=== PATIENT | male | born 1945 | race African-American/Black ===

== ENCOUNTER 2022-06-17 14:55 | Observation (INO) | payer OTHER ==
[2022-06-17 15:29] VITALS: BMI 23.6
[2022-06-17 17:32] LABS: BASO % 0.5 % (0-2.0); EOS % 0.9 % (0-4.5); HEMATOCRIT 30.9 % (35.4-49); HEMOGLOBIN 10.6 GM/dL (11.7-16.9); MCH 31.4 pg (25.7-33.7); MCHC 34.5 g/dl (32.0-35.9); MEAN CELL VOLUME 91.1 fl (80-96); MEAN PLT VOLUME 7.7 fl (7.5-11.1); MONO % 13.5 % (3.8-10.2); NEUT % 47.1 % (42.8-82.8); PLATELET COUNT 235 10^3/uL (134-434); RBC 3.39 M/mm3 (4.00-5.60); RDW 14.7 % (11.9-15.9); WHITE BLOOD COUNT 4.7 K/mm3 (4.0-10.0)
[2022-06-17 17:52] LABS: CALCIUM 9.3 mg/dL (8.5-10.1)
[2022-06-17 17:53] LABS: ALBUMIN 3.2 g/dl (3.4-5.0); BLOOD UREA NITROGEN 14.1 mg/dL (7-18)
[2022-06-17 17:55] LABS: CREATININE 0.8 mg/dL (0.55-1.3)
[2022-06-17 17:58] LABS: BILIRUBIN,TOTAL 0.5 mg/dL (0.2-1); TOT PROT 7.1 g/dl (6.4-8.2)
[2022-06-17 18:02] LABS: INR 1.11 (0.83-1.09); PROTHROMBIN TIME (PATIENT) 12.9 SEC (9.7-13.0)
[2022-06-17 18:03] LABS: ACTIVATED PTT 32.3 SECONDS (25.2-36.5)
[2022-06-17] MEDS ORDERED: ATORVASTATIN CA 80 MG TABLET (FP) PO ONE (19:00)
[2022-06-17] MEDS ORDERED: ASPIRIN 81 MG CHEWABLE TABLETS PO ONE (19:00)
[2022-06-17] MEDS ORDERED: ASPIRIN 81 MG CHEWABLE TABLETS ONE (19:47)
[2022-06-17] MEDS ORDERED: ATORVASTATIN CA 80 MG TABLET (FP) ONE (19:47)
[2022-06-18] MEDS: BRIMONIDINE TARTRATE 0.2% OPHTHALMIC 5 ML BOTTLE OU SCH ×3 (06:04→21:59)
[2022-06-18] MEDS: TIMOLOL 0.5% OPHTHALMIC SOL 5 ML BOTTLE OU SCH ×3 (06:04→21:59)
[2022-06-18] MEDS: LATANOPROST 0.005% OPHTH SOLN 2.5ML BOTTLE OU SCH ×2 (06:05→21:59)
[2022-06-18] MEDS: DEXTROSE 5%-0.45% SALINE 1,000 ML IV SCH ×2 (07:46→20:58)
[2022-06-18 09:09] LABS: EOS % 1.4 % (0-4.5); HEMATOCRIT 30.5 % (35.4-49); HEMOGLOBIN 10.4 GM/dL (11.7-16.9); LYMPH % 41.4 % (8-40); MCH 31.2 pg (25.7-33.7); MEAN CELL VOLUME 91.7 fl (80-96); MEAN PLT VOLUME 7.6 fl (7.5-11.1); MONO % 13.1 % (3.8-10.2); NEUT % 43.1 % (42.8-82.8); PLATELET COUNT 248 10^3/uL (134-434); RBC 3.32 M/mm3 (4.00-5.60); RDW 14.4 % (11.9-15.9); WHITE BLOOD COUNT 4.1 K/mm3 (4.0-10.0)
[2022-06-18 09:16] VITALS: RESP 18
[2022-06-18 09:53] LABS: CALCIUM 8.7 mg/dL (8.5-10.1)
[2022-06-18 09:55] LABS: BLOOD UREA NITROGEN 11.4 mg/dL (7-18)
[2022-06-18 09:58] LABS: CREATININE 0.7 mg/dL (0.55-1.3)
[2022-06-18 09:59] LABS: TOT PROT 6.5 g/dl (6.4-8.2)
[2022-06-18 10:00] LABS: BILIRUBIN,TOTAL 0.4 mg/dL (0.2-1)
[2022-06-18] MEDS ORDERED: LORazepam 2 MG/ML SDV VIAL IVPUSH PRN (10:16)
[2022-06-18 10:35] LABS: CHOLESTEROL 109 mg/dL (50-200); LDL CHOLESTEROL (ONLY SJRH) 57 mg/dL (5-100); TRIGLYCERIDES 104 mg/dL (0-150)
[2022-06-18 10:37] LABS: HDL CHOLESTEROL 37 mg/dL (40-60)
[2022-06-18] MEDS: ASPIRIN COATED 81 MG TABLET.EC PO SCH ×2 (11:31→11:37)
[2022-06-18] MEDS: amLODIPine BESYLATE 10 MG TABLET (FP) PO SCH ×2 (11:31→11:37)
[2022-06-18] MEDS ORDERED: HALOPERIDOL LACTATE 5 MG/ML IM ONE (16:01)
[2022-06-18] MEDS ORDERED: ATORVASTATIN CA 40 MG TABLET (FP) PO SCH (22:00)
[2022-06-19] MEDS: TIMOLOL 0.5% OPHTHALMIC SOL 5 ML BOTTLE OU SCH (09:20)
[2022-06-19] MEDS: BRIMONIDINE TARTRATE 0.2% OPHTHALMIC 5 ML BOTTLE OU SCH (09:37)
[2022-06-19] MEDS: amLODIPine BESYLATE 10 MG TABLET (FP) PO SCH (09:38)
[2022-06-19] MEDS: ASPIRIN COATED 81 MG TABLET.EC PO SCH (09:38)
[2022-06-19 18:27] VITALS: PULSE 74
[2022-06-19 20:29] VITALS: BP 140/68; TEMP 97.8
== END 2022-06-19 20:00 ==
LOC: JER 14:55 → JERBED 19:22 → J4W 23:12
PROVIDERS: ADMIT Internal Medicine; ATTEND Internal Medicine
PROC: 3E023GC Introduction of Other Therapeutic Substance into Muscle, Percutaneous Approach (ICD-10-PCS; principal; 2022-06-17)
PROC: 3E033NZ Introduction of Analgesics, Hypnotics, Sedatives into Peripheral Vein, Percutaneous Approach (ICD-10-PCS; 2022-06-17)
DX: G81.91 Hemiplegia, unspecified affecting right dominant side (principal); H54.8 Legal blindness, as defined in USA; I67.9 Cerebrovascular disease, unspecified; F03.90 Unspecified dementia, unspecified severity, without behavioral disturbance, psychotic disturbance, mood disturbance, and anxiety; I10 Essential (primary) hypertension; H40.9 Unspecified glaucoma
CPT/HCPCS: 0241U-QW; 36415; 70450-TC; 71045-TC-FY; 72125-TC; 80053; 80061; 84484; 85025; 85610; 85730; 86850; 86900; 86901; 93005; 93010; 93880-TC; 96372; 96374; 99285-25; G0378

== ENCOUNTER 2023-01-13 16:52 | Emergency (ER) | payer OTHER ==
[2023-01-13 17:59] VITALS: BP 124/57; PULSE 62; RESP 18; TEMP 97.7; BMI 18.1
[2023-01-13 18:50] LABS: BASO % 0.7 % (0-2.0); EOS % 1.1 % (0-4.5); HEMATOCRIT 28.7 % (35.4-49); HEMOGLOBIN 9.9 GM/dL (11.7-16.9); LYMPH % 36.1 % (8-40); MCH 32.1 pg (25.7-33.7); MCHC 34.5 g/dl (32.0-35.9); MEAN PLT VOLUME 8.5 fl (7.5-11.1); MONO % 14.1 % (3.8-10.2); PLATELET COUNT 202 10^3/uL (134-434); RBC 3.08 M/mm3 (4.00-5.60); RDW 14.9 % (11.9-15.9)
[2023-01-13 18:59] LABS: INR 1.17 (0.83-1.09); PROTHROMBIN TIME (PATIENT) 13.6 SEC (9.7-13.0)
[2023-01-13 19:00] LABS: ACTIVATED PTT 29.2 SECONDS (25.2-36.5)
[2023-01-13 19:15] LABS: POTASSIUM 4.2 mmol/L (3.5-5.1)
[2023-01-13 19:17] LABS: ALBUMIN 3.4 g/dl (3.4-5.0); BLOOD UREA NITROGEN 23.5 mg/dL (7-18); CALCIUM 9.1 mg/dL (8.5-10.1)
[2023-01-13 19:20] LABS: CREATININE 1.1 mg/dL (0.55-1.3)
[2023-01-13 19:22] LABS: BILIRUBIN,TOTAL 0.2 mg/dL (0.2-1); TOT PROT 6.8 g/dl (6.4-8.2)
== END 2023-01-14 05:30 ==
LOC: JER 16:52
DX: S40.911A Unspecified superficial injury of right shoulder, initial encounter (principal); M25.511 Pain in right shoulder; W19.XXXA Unspecified fall, initial encounter; Z20.822 Contact with and (suspected) exposure to COVID-19
CPT/HCPCS: 0241U-QW; 36415; 70450-TC; 71045-TC-FY; 72125-TC; 73030-TC-RT-FY; 73060-TC-RT-FY; 73070-TC-RT-FY; 73200-TC-RT; 80053; 82550; 82553; 83735; 84484; 85025; 85610; 85730; 86850; 86900; 86901; 93005; 93010; 99285-25

== ENCOUNTER 2023-04-01 09:04 | Emergency (ER) | payer OTHER ==
[2023-04-01 09:37] VITALS: RESP 18; TEMP 98; BMI 14.8
[2023-04-01 10:31] LABS: BASO % 0.9 % (0-2.0); EOS % 1.5 % (0-4.5); HEMATOCRIT 30.3 % (35.4-49); LYMPH % 26.3 % (8-40); MCH 30.9 pg (25.7-33.7); MCHC 32.9 g/dl (32.0-35.9); MEAN PLT VOLUME 7.8 fl (7.5-11.1); MONO % 9.7 % (3.8-10.2); NEUT % 61.6 % (42.8-82.8); PLATELET COUNT 180 10^3/uL (134-434); RBC 3.23 M/mm3 (4.00-5.60); RDW 14.4 % (11.9-15.9); WHITE BLOOD COUNT 3.6 K/mm3 (4.0-10.0)
[2023-04-01 10:43] LABS: INR 1.14 (0.83-1.09); PROTHROMBIN TIME (PATIENT) 13.2 SEC (9.7-13.0)
[2023-04-01 10:45] LABS: ACTIVATED PTT 29.5 SECONDS (25.2-36.5)
[2023-04-01 10:50] LABS: ALBUMIN 3.3 g/dl (3.4-5.0); CALCIUM 8.6 mg/dL (8.5-10.1)
[2023-04-01 10:55] LABS: BILIRUBIN,TOTAL 0.4 mg/dL (0.2-1)
[2023-04-01] MEDS ORDERED: HALOPERIDOL LACTATE 5 MG/ML IVPUSH ONE (13:40)
[2023-04-01] MEDS ORDERED: HALOPERIDOL LACTATE 5 MG/ML ONE ×2 (13:41→13:46)
[2023-04-01] MEDS ORDERED: MIDAZOLAM HCL 10 MG/10 ML VIAL IVPUSH ONE (14:45)
[2023-04-01] MEDS ORDERED: MIDAZOLAM HCL 2 MG/2 ML SINGLE DOSE VIAL ONE (15:02)
[2023-04-01 18:46] VITALS: BP 142/75; PULSE 85
== END 2023-04-02 00:30 ==
LOC: JER 09:04
PROC: 3E023GC Introduction of Other Therapeutic Substance into Muscle, Percutaneous Approach (ICD-10-PCS; principal; 2023-04-01)
PROC: 3E023GC Introduction of Other Therapeutic Substance into Muscle, Percutaneous Approach (ICD-10-PCS; 2023-04-01)
DX: R45.1 Restlessness and agitation (principal); R44.3 Hallucinations, unspecified; F22 Delusional disorders; W06.XXXA Fall from bed, initial encounter; Y93.89 Activity, other specified; Z20.822 Contact with and (suspected) exposure to COVID-19
CPT/HCPCS: 0241U-QW; 36415; 70450-TC; 71045-TC-FY; 72125-TC; 72170-TC-FY; 80053; 84484; 85025; 85610; 85730; 93005; 93010; 99285-25

== ENCOUNTER 2023-10-20 13:58 | Emergency (ER) | payer OTHER ==
[2023-10-20 14:32] VITALS: RESP 19; TEMP 97.9
[2023-10-20 14:35] VITALS: BMI 22.1
[2023-10-20 18:06] VITALS: BP 129/64; PULSE 69
== END 2023-10-20 18:51 ==
LOC: JER 13:58
DX: Z04.3 Encounter for examination and observation following other accident (principal); W05.0XXA Fall from non-moving wheelchair, initial encounter
CPT/HCPCS: 70450-TC; 72125-TC; 99284-25

== ENCOUNTER 2024-04-04 18:52 | Inpatient (IN) | payer OTHER ==
[2024-04-04 19:43] VITALS: BMI 20.7
[2024-04-04 20:21] LABS: VENOUS BASE EXCESS 0.7 mmol/L (-2-2); VENOUS O2 SATURATION 71.5 % (70-80); VENOUS PCO2 42.4 mmHg (38-52); VENOUS PH 7.399 (7.310-7.410)
[2024-04-04 20:24] LABS: HEMOGLOBIN 10.8 GM/dL (11.7-16.9); MCH 31.1 pg (25.7-33.7); MCHC 32.7 g/dl (32.0-35.9); MEAN CELL VOLUME 95.1 fl (80-96); MEAN PLT VOLUME 8.7 fl (7.5-11.1); PLATELET COUNT 166 10^3/uL (134-434); RBC 3.47 M/mm3 (4.00-5.60); RDW 15.7 % (11.9-15.9)
[2024-04-04 20:28] LABS: INR 1.17 (0.83-1.09); PROTHROMBIN TIME (PATIENT) 13.4 SEC (9.7-13.0)
[2024-04-04 20:31] LABS: ACTIVATED PTT 29.6 SECONDS (25.2-36.5)
[2024-04-04 20:33] LABS: MAGNESIUM 2.5 mg/dL (1.8-2.4); POTASSIUM 4.7 mmol/L (3.5-5.1)
[2024-04-04 20:35] LABS: CALCIUM 9.3 mg/dL (8.5-10.1)
[2024-04-04 20:36] LABS: ALBUMIN 3.7 g/dl (3.4-5.0); BLOOD UREA NITROGEN 25.5 mg/dL (7-18)
[2024-04-04 20:39] LABS: CREATININE 1.6 mg/dL (0.55-1.3)
[2024-04-04 20:41] LABS: BILIRUBIN,TOTAL 0.5 mg/dL (0.2-1); N-TERMINAL BNP 2748.4 pg/ml (5-450); TOT PROT 7.9 g/dl (6.4-8.2)
[2024-04-04] MEDS: KETOROLAC TROMETHAMINE 15 MG/ML VIAL IVPUSH ONE (20:48)
[2024-04-04] MEDS: SODIUM CHLORIDE 0.9% 1000 ML INFUS.BAG IV ONE (20:48)
[2024-04-04] MEDS ORDERED: KETOROLAC TROMETHAMINE 15 MG/ML VIAL ONE (20:49)
[2024-04-04 21:04] LABS: LACTIC ACID 2.3 mmol/L (0.4-2.0)
[2024-04-04 21:18] LABS: ANISOCYTOSIS 1+; MACROCYTOSIS 0
[2024-04-05] MEDS: SODIUM CHLORIDE 1,000 ML IV SCH (01:03)
[2024-04-05] MEDS: OSELTAMIVIR PHOSPHATE 30 MG CAPSULE PO ONE (01:04)
[2024-04-05] MEDS: ASPIRIN 81 MG CHEWABLE TABLETS PO ONE (01:04)
[2024-04-05] MEDS ORDERED: ASPIRIN 81 MG CHEWABLE TABLETS ONE ×2 (01:08→10:31)
[2024-04-05] MEDS ORDERED: OSELTAMIVIR PHOSPHATE 30 MG CAPSULE ONE (01:08)
[2024-04-05] MEDS ORDERED: ACETAMINOPHEN 325 MG TABLET (FP) PO PRN (04:40)
[2024-04-05] MEDS: INSULIN ASPART SLIDING SCALE (NOVOLOG) 1 VIAL SQ SCH (08:19)
[2024-04-05 08:26] LABS: HEMATOCRIT 32.4 % (35.4-49); HEMOGLOBIN 10.8 GM/dL (11.7-16.9); MCH 31.4 pg (25.7-33.7); MCHC 33.2 g/dl (32.0-35.9); MEAN CELL VOLUME 94.6 fl (80-96); MEAN PLT VOLUME 8.6 fl (7.5-11.1); PLATELET COUNT 148 10^3/uL (134-434); RBC 3.43 M/mm3 (4.00-5.60); RDW 15.8 % (11.9-15.9); WHITE BLOOD COUNT 6.6 K/mm3 (4.0-10.0)
[2024-04-05 08:39] LABS: POTASSIUM 4.2 mmol/L (3.5-5.1)
[2024-04-05 08:42] LABS: ALBUMIN 3.6 g/dl (3.4-5.0); BLOOD UREA NITROGEN 24.9 mg/dL (7-18); CALCIUM 9.1 mg/dL (8.5-10.1); MAGNESIUM 2.5 mg/dL (1.8-2.4)
[2024-04-05 08:45] LABS: CREATININE 1.3 mg/dL (0.55-1.3)
[2024-04-05 08:46] LABS: PHOSPHOROUS 3.6 mg/dL (2.5-4.9)
[2024-04-05 08:47] LABS: BILIRUBIN,TOTAL 0.4 mg/dL (0.2-1); TOT PROT 7.7 g/dl (6.4-8.2)
[2024-04-05 09:04] LABS: ANISOCYTOSIS 0; MACROCYTOSIS 0
[2024-04-05] MEDS ORDERED: LOSARTAN POTASSIUM 50 MG TABLET PO SCH (10:00)
[2024-04-05] MEDS ORDERED: traZODone HCL 50 MG TABLET (FP) ONE (10:31)
[2024-04-05] MEDS: traZODone HCL 50 MG TABLET (FP) PO SCH (10:35)
[2024-04-05] MEDS: ASPIRIN 81 MG CHEWABLE TABLETS PO SCH (10:35)
[2024-04-05] MEDS: OSELTAMIVIR PHOSPHATE 30 MG CAPSULE PO SCH (10:36)
[2024-04-05] MEDS: MAGNESIUM HYDROX 2400MG/30ML ORAL SUSPENSION 30 ML CUP PO SCH (10:36)
[2024-04-05] MEDS: amLODIPine BESYLATE 10 MG TABLET (FP) PO SCH (10:36)
[2024-04-05] MEDS: QUEtiapine FUMARATE 25 MG TABLET PO SCH (10:36)
[2024-04-05] MEDS: HEPARIN NA (PORCINE) 5,000 UNITS/ML 1ML VIAL SQ SCH (10:36)
[2024-04-05] MEDS: CHOLECALCIFEROL (VIT D3) 1,000 UNIT (25 MCG) TABLET PO SCH (10:36)
[2024-04-05] MEDS: FERROUS SO4 325 MG TABLET (FP) PO SCH (10:36)
[2024-04-05] MEDS: PANTOPRAZOLE 20 MG TABLET PO SCH (10:36)
[2024-04-05] MEDS: BRIMONIDINE TARTRATE 0.2% OPHTHALMIC 5 ML BOTTLE OU SCH (13:20)
[2024-04-05] MEDS ORDERED: CEFTRIAXONE 1 G/50 ML PREMIX 50 ML IVPB ONE (15:45)
[2024-04-05] MEDS: CEFTRIAXONE 1 GM in DEXTROSE 5%-WATER - 50 ML IVPB SCH (16:55)
[2024-04-05] MEDS: PATIENT'S OWN MEDICATION (NON-FORMULARY) (Timolol Maleate/Pf [Timolol Maleate 0.5% Eye Dro OU SCH (17:52)
[2024-04-05] MEDS: ACETAMINOPHEN 325 MG TABLET (FP) PO PRN (19:24)
[2024-04-05] MEDS: DOCUSATE SODIUM 100 MG CAPSULE (FP) PO SCH (21:04)
[2024-04-05] MEDS: MELATONIN 1 MG TABLET PO SCH (21:04)
[2024-04-05] MEDS: ATORVASTATIN CA 20 MG TABLET (FP) PO SCH (21:04)
[2024-04-05] MEDS: LATANOPROST 0.005% OPHTH SOLN 2.5ML BOTTLE OU SCH (22:21)
[2024-04-05] MEDS: MIRTAZAPINE 15 MG TABLET (FP) PO SCH (22:21)
[2024-04-06] MEDS: CEFTRIAXONE 1 G/50 ML PREMIX 50 ML IVPB SCH (10:31)
[2024-04-06] MEDS: ACETAMINOPHEN 1000 MG/100 ML BAG IVPB ONE (10:44)
[2024-04-06] MEDS: FUROSEMIDE 40 MG/4 ML INJECTABLE VIAL IVPUSH ONE (10:44)
[2024-04-06 14:26] LABS: HEMATOCRIT 30.9 % (35.4-49); HEMOGLOBIN 10.4 GM/dL (11.7-16.9); MCH 31.2 pg (25.7-33.7); MCHC 33.4 g/dl (32.0-35.9); MEAN CELL VOLUME 93.2 fl (80-96); MEAN PLT VOLUME 9.1 fl (7.5-11.1); PLATELET COUNT 158 10^3/uL (134-434); RBC 3.32 M/mm3 (4.00-5.60); RDW 15.6 % (11.9-15.9); WHITE BLOOD COUNT 7.5 K/mm3 (4.0-10.0)
[2024-04-06 14:41] LABS: POTASSIUM 3.2 mmol/L (3.5-5.1)
[2024-04-06 14:43] LABS: BLOOD UREA NITROGEN 25.2 mg/dL (7-18); CALCIUM 8.8 mg/dL (8.5-10.1)
[2024-04-06 14:44] LABS: ALBUMIN 3.3 g/dl (3.4-5.0)
[2024-04-06 14:46] LABS: CREATININE 1.1 mg/dL (0.55-1.3)
[2024-04-06 14:47] LABS: BILIRUBIN,TOTAL 0.4 mg/dL (0.2-1)
[2024-04-06 14:48] LABS: TOT PROT 7.1 g/dl (6.4-8.2)
[2024-04-06 15:06] LABS: ANISOCYTOSIS 1+; MACROCYTOSIS 1+
[2024-04-07 08:28] LABS: BASO % 0.3 % (0-2.0); EOS % 0.2 % (0-4.5); HEMATOCRIT 29.1 % (35.4-49); LYMPH % 16.4 % (8-40); MCH 32.1 pg (25.7-33.7); MCHC 34.5 g/dl (32.0-35.9); MEAN CELL VOLUME 93.1 fl (80-96); MEAN PLT VOLUME 8.6 fl (7.5-11.1); MONO % 13.5 % (3.8-10.2); NEUT % 69.6 % (42.8-82.8); PLATELET COUNT 146 10^3/uL (134-434); RBC 3.12 M/mm3 (4.00-5.60); RDW 15.4 % (11.9-15.9); WHITE BLOOD COUNT 7.3 K/mm3 (4.0-10.0)
[2024-04-07 08:47] LABS: POTASSIUM 3.6 mmol/L (3.5-5.1)
[2024-04-07 09:07] LABS: CALCIUM 8.8 mg/dL (8.5-10.1)
[2024-04-07 09:08] LABS: BLOOD UREA NITROGEN 30.2 mg/dL (7-18)
[2024-04-07 09:11] LABS: CREATININE 1.1 mg/dL (0.55-1.3)
[2024-04-07 09:12] LABS: BILIRUBIN,TOTAL 0.4 mg/dL (0.2-1)
[2024-04-07 09:13] LABS: TOT PROT 6.7 g/dl (6.4-8.2)
[2024-04-07] MEDS: ASPIRIN COATED 81 MG TABLET.EC PO SCH (09:58)
[2024-04-07] MEDS: amLODIPine BESYLATE 5 MG TABLET (FP) PO SCH (09:59)
[2024-04-08 08:36] LABS: HEMATOCRIT 27.6 % (35.4-49); HEMOGLOBIN 9.4 GM/dL (11.7-16.9); MCH 31.6 pg (25.7-33.7); MCHC 33.9 g/dl (32.0-35.9); MEAN CELL VOLUME 93.2 fl (80-96); MEAN PLT VOLUME 8.7 fl (7.5-11.1); PLATELET COUNT 152 10^3/uL (134-434); RBC 2.96 M/mm3 (4.00-5.60); RDW 15.3 % (11.9-15.9); WHITE BLOOD COUNT 5.1 K/mm3 (4.0-10.0)
[2024-04-08 09:01] LABS: POTASSIUM 3.4 mmol/L (3.5-5.1)
[2024-04-08 09:17] LABS: ALBUMIN 2.8 g/dl (3.4-5.0); BLOOD UREA NITROGEN 24.6 mg/dL (7-18); CALCIUM 8.4 mg/dL (8.5-10.1)
[2024-04-08 09:21] LABS: BILIRUBIN,TOTAL 0.5 mg/dL (0.2-1)
[2024-04-08 09:22] LABS: TOT PROT 6.2 g/dl (6.4-8.2)
[2024-04-08 09:35] LABS: ANISOCYTOSIS 0; MACROCYTOSIS 0
[2024-04-08] MEDS: POTASSIUM CHLORIDE TABS 10 MEQ TABLET.ER (FP) PO ONE (19:04)
[2024-04-08] MEDS: POTASSIUM CHLORIDE ORAL LIQUID 20 MEQ/15 ML PO ONE (19:33)
[2024-04-09 08:38] LABS: HEMATOCRIT 30.6 % (35.4-49); HEMOGLOBIN 10.4 GM/dL (11.7-16.9); MCH 31.6 pg (25.7-33.7); MCHC 33.9 g/dl (32.0-35.9); MEAN PLT VOLUME 8.6 fl (7.5-11.1); PLATELET COUNT 189 10^3/uL (134-434); RBC 3.29 M/mm3 (4.00-5.60); RDW 15.3 % (11.9-15.9); WHITE BLOOD COUNT 4.5 K/mm3 (4.0-10.0)
[2024-04-09 08:50] LABS: POTASSIUM 4.3 mmol/L (3.5-5.1)
[2024-04-09 09:00] LABS: CALCIUM 9.1 mg/dL (8.5-10.1)
[2024-04-09 09:04] LABS: CREATININE 1.1 mg/dL (0.55-1.3)
[2024-04-10 11:46] VITALS: BP 121/61; PULSE 63; RESP 16; TEMP 98.2
== END 2024-04-10 10:30 | DRG 871 ==
LOC: JER 18:52 → JERBED 23:53 → J4S 04-05 17:03
PROVIDERS: ADMIT Internal Medicine; ATTEND Internal Medicine
DX: A41.89 Other specified sepsis (principal); E43 Unspecified severe protein-calorie malnutrition; I21.A1 Myocardial infarction type 2; J10.08 Influenza due to other identified influenza virus with other specified pneumonia; I69.351 Hemiplegia and hemiparesis following cerebral infarction affecting right dominant side; N17.9 Acute kidney failure, unspecified; I25.10 Atherosclerotic heart disease of native coronary artery without angina pectoris; F03.90 Unspecified dementia, unspecified severity, without behavioral disturbance, psychotic disturbance, mood disturbance, and anxiety; I10 Essential (primary) hypertension; E78.5 Hyperlipidemia, unspecified; D64.9 Anemia, unspecified; K59.00 Constipation, unspecified; F32.A Depression, unspecified; R65.20 Severe sepsis without septic shock; Z68.20 Body mass index [BMI] 20.0-20.9, adult
CPT/HCPCS: 0241U-QW; 36415; 71045-TC-FY; 76775-TC; 80048; 80053; 80061; 82550; 82553; 82728; 82803; 82962; 83036; 83540; 83550; 83605; 83735; 83880; 84100; 84443; 84484; 85025; 85027; 85045; 85610; 85730; 86850; 86900; 86901; 87040; 93005; 93010; 97161-GP; 99285-25; J0131; J1644